=== PATIENT | male | born 1990 | race Caucasian/White ===

== ENCOUNTER 2023-06-20 08:00 | Outpatient (CLI) | payer OTHER ==
[2023-06-20 15:04] LABS: H. PYLORIS ANTIGEN STL NEGATIVE (Negative)
== END 2023-06-20 23:59 | disposition home or self-care (01) ==
LOC: LAB.S 08:00
PROVIDERS: ATTEND Registered Nurse
DX: K21.9 Gastro-esophageal reflux disease without esophagitis (principal)
CPT/HCPCS: 87338